=== PATIENT | male | born 1950 | race Caucasian/White ===

== ENCOUNTER 2018-04-17 19:35 | Emergency (ER) | payer MEDICARE ==
[~2018-04-17] VITALS: Ht 177.8 cm; Wt 114.9 kg
[2018-04-17 19:43] VITALS: BP 145/79
[2018-04-17] MEDS ORDERED: BACITRACIN ZINC OINT 500U/GM, 0.9 GM ONE (19:59)
[2018-04-17] MEDS ORDERED: DIPH,PERTUSS(ACELL),TET VAC/PF 0.5 ML IM-VACC ONE ×2 (20:00→20:02)
[2018-04-17] MEDS ORDERED: LIDOCAINE-MPF 1%, 5ML INFIL ONE (20:00)
[2018-04-17] MEDS ORDERED: LIDOCAINE-MPF 1%, 5ML ONE (20:02)
== END 2018-04-17 21:10 | disposition home or self-care (01) ==
LOC: ED 20:15
DX: S61.412A Laceration without foreign body of left hand, initial encounter (principal); E78.5 Hyperlipidemia, unspecified; I10 Essential (primary) hypertension; Z87.891 Personal history of nicotine dependence; W26.0XXA Contact with knife, initial encounter; Y93.89 Activity, other specified; Y92.89 Other specified places as the place of occurrence of the external cause; Y99.8 Other external cause status
CPT/HCPCS: 12042; 90471; 90715

== ENCOUNTER 2018-04-24 15:55 | Emergency (ER) | payer MEDICARE ==
[~2018-04-24] VITALS: Ht 177.8 cm; Wt 110.0 kg
[2018-04-24 15:58] VITALS: BP 135/86
== END 2018-04-24 16:19 | disposition home or self-care (01) ==
LOC: ED 16:14
DX: S61.412D Laceration without foreign body of left hand, subsequent encounter (principal); I10 Essential (primary) hypertension; E78.5 Hyperlipidemia, unspecified; X58.XXXD Exposure to other specified factors, subsequent encounter
CPT/HCPCS: 99282; 99283